=== PATIENT | male | born 1950 | race Two or more races ===

== ENCOUNTER 2022-10-18 08:05 | Outpatient (CLI) | payer OTHER | END 2022-10-18 08:37 | disposition home or self-care (01) | LOC: TOM 08:05 | PROVIDERS: ATTEND Internal Medicine | DX: I71.22 Aneurysm of the aortic arch, without rupture (principal); I35.1 Nonrheumatic aortic (valve) insufficiency | CPT/HCPCS: 71275; Q9965 ==

== ENCOUNTER 2025-04-28 10:43 | Emergency (ER) | payer OTHER ==
[~2025-04-28] VITALS: Ht 167.6 cm; Wt 81.6 kg
[2025-04-28] MEDS ORDERED: CETIRIZINE HCL 5 MG/5 ML ML PO ONE (11:45)
[2025-04-28] MEDS ORDERED: BENZONATATE 200 MG CAPSULE PO ONE (11:45)
[2025-04-28] MEDS ORDERED: CEFTRIAXONE SODIUM 1,000 MG VIAL IM ONE (11:45)
[2025-04-28] MEDS ORDERED: LIDOCAINE HCL/MPF 1% 5ML VIAL IJ ONE (12:32)
[2025-04-28] MEDS ORDERED: CETIRIZINE HCL 5MG/5ML BLIST.PACK PO ONE (12:32)
[2025-04-28] MEDS ORDERED: CEFTRIAXONE SODIUM 1,000 MG VIAL ONE (12:33)
[2025-04-28 13:04] LABS: BASO % 0.5 % (0.1-1.2); EOS # 0.01 (0.04-0.54); EOS % 0.1 % (0.7-7.0); LYMPH # 1.80 (1.18-3.74); LYMPH % 23.2 % (19.3-53.1); MEAN PLATELET VOLUME 11.10 fl (9.4-12.4); MONO # 0.77 (0.24-0.82); MONO % 9.9 % (4.7-12.5); NEUT # 5.13 (1.56-6.13); NEUT % 66.0 % (34.0-71.1); RED CELL DISTRIBUTION WIDTH 14.1 % (11.6-14.4)
[2025-04-28 14:00] LABS: COVID-19 AG NEGATIVE (NEGATIVE)
[2025-04-28] MEDS ORDERED: OSEL75CA PO (14:16)
[2025-04-28] MEDS ORDERED: PEPCID AC20 MG PO (14:16)
[2025-04-28 14:20] VITALS: BP 148/65; O2SAT 98
== END 2025-04-28 14:21 | disposition home or self-care (01) ==
LOC: ER 10:44
PROVIDERS: General Practice
DX: J10.1 Influenza due to other identified influenza virus with other respiratory manifestations (principal); R05.8 Other specified cough; R50.9 Fever, unspecified; I10 Essential (primary) hypertension; Z20.822 Contact with and (suspected) exposure to COVID-19
CPT/HCPCS: 36415; 96372; 99282; J0696